=== PATIENT | male | born 1975 | race Caucasian/White ===

== ENCOUNTER 2021-06-26 23:52 | Observation (INO) | payer OTHER ==
--- NOTE | 2021-06-26 23:56 | ERPHSYRPT ---
- History of Present Illness Time Seen by Provider: 06/26/21 23:56 Source: patient, EMS Exam Limitations: clinical condition Physician History: This is a 46-year-old white male who was brought into the emergency department via EMS because of altered mental status. On arrival to emergency department patient seems awake alert and oriented. He is complaining of generalized muscle aches pains and stiffness. He has no specific shortness of breath now but did so earlier in the day. He also has no chest pain. He has no abdominal pain. Patient admits to drinking maybe 1 or 2 drinks during the week and then several drinks on the weekends. Today, in a 24-hour. Patient states he drank 6 seltzers but no more than that. Patient does have trouble sleeping at night. He does take trazodone and Lexapro medication. Patient's found him crying in his room at home and was not answering questions normally and was concerned about his mental status being altered. Patient denies illicit drug use. Patient denies hitting his head. There was no witnessed seizure. Patient did not lose bowel or urine control. Patient is not suicidal. Patient is not homicidal. Timing/Duration: today Severity: mild Character of Deficits: none Deficits: no difficulties Baseline/Normal Cognition: alert oriented x 3 Current Cognition: alert oriented x 3 Baseline Gait: walks w/o assistance Associated Symptoms: confusion (At home and very briefly in the emergency department upon arrival. Quickly that changed to awake alert and oriented x4) Allergies/Adverse Reactions: shrimp Allergy (Verified 06/26/21 23:54) Home Medications: ALPRAZolam 1 MG [Xanax 1 mg] 1 mg PO HS 06/09/16 [History] Escitalopram Oxalate 10 mg [Lexapro 10 MG] 10 mg PO DAILY 06/26/21 [History] Travel Risk - International Travel Have you traveled outside of the country in past 3 weeks: No - Coronavirus Screening Are you exhibiting any of the following symptoms?: No Close contact with a COVID-19 positive Pt in past 14-21 Days: No - Review of Systems Constitutional: No Symptoms Eyes: No Symptoms Ears, Nose, & Throat: No Symptoms Respiratory: No Symptoms Cardiac: No Symptoms Abdominal/Gastrointestinal: No Symptoms Genitourinary Symptoms: No Symptoms Musculoskeletal: No Symptoms Skin: No Symptoms Neurological: No Symptoms Psychological: Anxiety, No Suicidal Ideations, No Homicidal Ideations Endocrine: No Symptoms Hematologic/Lymphatic: No Symptoms Immunological/Allergic: No Symptoms All Other Systems: Reviewed and Negative - Past Medical History Pertinent Past Medical History: No Neurological History: No Pertinent History ENT History: No Pertinent History Cardiac History: No Pertinent History Respiratory History: No Pertinent History Endocrine Medical History: No Pertinent History Musculoskeletal History: No Pertinent History GI Medical History: No Pertinent History History: No Pertinent History Psycho-Social History: Other Male Reproductive Disorders: No Pertinent History Other Medical History: has trouble sleeping uses xanax for sleep aid - Past Surgical History Past Surgical History: Yes Neuro Surgical History: No Pertinent History Cardiac: No Pertinent History Respiratory: No Pertinent History Gastrointestinal: Other Genitourinary: No Pertinent History Musculoskeletal: No Pertinent History Male Surgical History: No Pertinent History Other Surgical History: Lasix eye surgery, EGD, Colonoscopy - Social History Smoking Status: Never smoker Exposure to second hand smoke: No Drug Use: none - Nursing Vital Signs Nursing Vital Signs: Initial Vital Signs Temperature 97.7 F 06/26/21 23:57 Pulse Rate 97 H 06/26/21 23:57 Respiratory Rate 14 06/26/21 23:57 Blood Pressure 165/92 06/26/21 23:57 O2 Sat by Pulse Oximetry 100 06/26/21 23:57 Pain Scale Pain Intensity 0 - Castile Coma Scale Best Eye Response (Mari): (4) open spontaneously Best Verbal Response (Castile): (5) oriented Best Motor Response (Castile): (6) obeys commands Mari Total: 15 - Physical Exam General Appearance: no apparent distress, alert, anxiety Eye Exam: bilateral eye: normal inspection, PERRL, EOMI Ears, Nose, Throat Exam: normal ENT inspection, moist mucous membranes, tonsillar exudate Neck Exam: normal inspection, non-tender, supple Respiratory: normal breath sounds, lungs clear, airway intact, No chest tenderness, No respiratory distress Cardiovascular: regular rate/rhythm, normal heart sounds, normal peripheral pulses Gastrointestinal: soft, normal bowel sounds, No tenderness Rectal Exam: not done Back Exam: normal inspection, normal range of motion, No CVA tenderness, No vertebral tenderness Extremity Exam: normal inspection, normal range of motion, pelvis stable Mental Status: alert, oriented x 3, 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 Exam: normal hearing, normal speech, PERRL, tongue midline Coordination/Gait: normal finger to nose Motor/Sensory: no motor deficit, no sensory deficit, no pronator drift Skin Exam: normal color, warm, dry SpO2 Interpretation: normal O2 Delivery: Room Air - Course Nursing assessment & vital signs reviewed: Yes EKG Interpreted by Me: RATE (93), Sinus Rhythm, NORMAL AXIS, NORMAL INTERVALS, NORMAL QRS, NORMAL ST-T, Other (No acute ischemic changes on today's EKG.) Ordered Tests: Active Orders 24 hr Category Date Time Status Aerospace Physiological Technician STAT Care 06/26/21 23:57 Active Clean Catch Urine Specimen STAT Care 06/26/21 23:57 Active EKG-ER Only STAT Care 06/26/21 23:57 Active IV Insertion STAT Care 06/26/21 23:57 Active Pulse Oximetry (ED) STAT Care 06/26/21 23:57 Active CHEST WITH CONTRAST [CT] Stat Exams 06/27/21 01:30 Taken HEAD WITHOUT CONTRAST [CT] Routine Exams 06/27/21 Taken D-DIMER QUANTITATIVE Stat Lab 06/27/21 01:08 Completed Lactic Acid Stat Lab 06/26/21 23:57 Completed Lactic Acid Stat Lab 06/27/21 03:10 Received TROPONIN Q3H Lab 06/27/21 01:08 Completed TROPONIN Q3H Lab 06/27/21 04:24 Received TROPONIN Q3H Lab 06/27/21 07:00 Ordered TROPONIN Q3H Lab 06/27/21 10:00 Ordered TROPONIN Q3H Lab 06/27/21 13:00 Ordered Medication Summary Discontinued Medications Generic Name Dose Route Start Last Admin Trade Name Freq PRN Reason Stop Dose Admin Methylprednisolone Sodium 0 mg 06/27/21 02:07 06/27/21 02:11 Succinate 125 mg/ Sterile IV 06/27/21 02:08 125 mg Water 2 ml STAT ONE Administration Diphenhydramine HCl 50 mg 06/27/21 02:07 06/27/21 02:12 Diphenhydramine Hcl 50 Mg/Ml Vial IV 06/27/21 02:08 50 mg STAT ONE Administration Diphenhydramine HCl Confirm 06/27/21 02:10 Diphenhydramine Hcl 50 Mg/Ml Vial Administered 06/27/21 02:11 Dose 50 mg .ROUTE .STK-MED ONE Sodium Chloride 1,000 mls @ 999 mls/hr 06/26/21 23:57 06/27/21 02:55 Sodium Chloride 0.9% 1000 Ml IV 06/27/21 00:57 Infused .Q1H1M STA Infusion Sodium Chloride Confirm 06/27/21 01:11 Sodium Chloride 0.9% 1000 Ml Administered 06/27/21 01:12 Dose 1,000 mls @ ud .ROUTE .STK-MED ONE Lorazepam 1 mg 06/27/21 00:11 06/27/21 01:15 Lorazepam 2 Mg/1 Ml 2 Mg Vial IV 06/27/21 00:12 1 mg STAT ONE Administration Lorazepam Confirm 06/27/21 00:11 Lorazepam 2 Mg/1 Ml 2 Mg Vial Administered 06/27/21 00:12 Dose 2 mg .ROUTE .STK-MED ONE Methylprednisolone Sodium Succinate Confirm 06/27/21 02:10 Methylprednis Sod Succ 125 Mg/2 Ml Vial Administered 06/27/21 02:11 Dose 125 mg .ROUTE .STK-MED ONE Ondansetron HCl 4 mg 06/26/21 23:57 06/27/21 01:13 Ondansetron Hcl 4 Mg/2 Ml Vial IV 06/26/21 23:58 4 mg STAT ONE Administration Ondansetron HCl Confirm 06/27/21 01:11 Ondansetron Hcl 4 Mg/2 Ml Vial Administered 06/27/21 01:12 Dose 4 mg .ROUTE .STK-MED ONE Sterile Water Confirm 06/27/21 02:11 Water For Injection,Sterile 10 Ml Vial Administered 06/27/21 02:12 Dose 10 ml IJ .STK-MED ONE Lab/Rad Data: Laboratory Result Diagrams 06/26/21 00:47 06/26/21 00:47 Laboratory Results 06/27/21 06/27/21 06/27/21 Range/Units 01:08 01:08 00:47 WBC (4.0-10.5) K/mm3 RBC (4.1-5.6) M/mm3 Hgb (12.5-18.0) gm/dl Hct (42-50) % MCV (78-100) fl MCH (26-32) pg MCHC (32-36) g/dl RDW (11.5-14.0) % Plt Count (150-450) K/mm3 MPV (7.5-11.0) fl Gran % (36.0-66.0) % Eos # (Auto) (0-0.5) Absolute Lymphs (auto) (1.0-4.6) Absolute Monos (auto) (0.0-1.3) Lymphocytes % (24.0-44.0) % Monocytes % (0.0-12.0) % Eosinophils % (0.00-5.0) % Basophils % (0.0-0.4) % Absolute Granulocytes (1.4-6.9) Basophils # (0-0.4) D-Dimer 904 H* (215-500) ng/mL Sodium (137-145) mmol/L Potassium (3.5-5.1) mmol/L Chloride (98-107) mmol/L Carbon Dioxide (22-30) mmol/L Anion Gap (5-15) MEQ/L BUN (9-20) mg/dL Creatinine (0.66-1.25) mg/dL Estimated GFR ML/MIN Glucose (74-106) mg/dL Lactic Acid (0.4-2.0) Calcium (8.4-10.2) mg/dL Total Bilirubin (0.2-1.3) mg/dL AST (17-59) U/L ALT (0-50) U/L Alkaline Phosphatase (38-126) U/L Ammonia < 9 L (9-30) umol/L Troponin I < 0.012 (0.000-0.034) ng/mL Serum Total Protein (6.3-8.2) g/dL Albumin (3.5-5.0) g/dL Urine Color (YELLOW) Urine Appearance (CLEAR) Urine pH (5-6) Ur Specific [place] (1.005-1.025) Urine Protein (Negative) Urine Ketones (NEGATIVE) Urine Blood (0-5) Terrence/ul Urine Nitrite (NEGATIVE) Urine Bilirubin (NEGATIVE) Urine Urobilinogen (0-1) mg/dL Ur Leukocyte Esterase (NEGATIVE) Urine WBC (Auto) (0-5) /HPF Urine RBC (Auto) (0-2) /HPF U Epithel Cells (Auto) (FEW) /HPF Urine Bacteria (Auto) (NEGATIVE) /HPF Urine Culture Reflexed (NO) Urine Glucose (NEGATIVE) mg/dL Salicylates (2-20) mg/dL Urine Opiates Level (NEGATIVE) Ur Methadone (NEGATIVE) Acetaminophen (10-30) ug/ml Urine Barbiturates (NEGATIVE) Ur Phencyclidine (PCP) (NEGATIVE) Urine Amphetamine (NEGATIVE) U Benzodiazepine Level (NEGATIVE) Urine Cocaine (NEGATIVE) Urine Marijuana (THC) (NEGATIVE) Ethyl Alcohol (0-10) mg/dL 06/27/21 06/26/21 06/26/21 Range/Units 00:45 00:48 00:48 WBC (4.0-10.5) K/mm3 RBC (4.1-5.6) M/mm3 Hgb (12.5-18.0) gm/dl Hct (42-50) % MCV (78-100) fl MCH (26-32) pg MCHC (32-36) g/dl RDW (11.5-14.0) % Plt Count (150-450) K/mm3 MPV (7.5-11.0) fl Gran % (36.0-66.0) % Eos # (Auto) (0-0.5) Absolute Lymphs (auto) (1.0-4.6) Absolute Monos (auto) (0.0-1.3) Lymphocytes % (24.0-44.0) % Monocytes % (0.0-12.0) % Eosinophils % (0.00-5.0) % Basophils % (0.0-0.4) % Absolute Granulocytes (1.4-6.9) Basophils # (0-0.4) D-Dimer (215-500) ng/mL Sodium (137-145) mmol/L Potassium (3.5-5.1) mmol/L Chloride (98-107) mmol/L Carbon Dioxide (22-30) mmol/L Anion Gap (5-15) MEQ/L BUN (9-20) mg/dL Creatinine (0.66-1.25) mg/dL Estimated GFR ML/MIN Glucose (74-106) mg/dL Lactic Acid 2.3 H (0.4-2.0) Calcium (8.4-10.2) mg/dL Total Bilirubin (0.2-1.3) mg/dL AST (17-59) U/L ALT (0-50) U/L Alkaline Phosphatase (38-126) U/L Ammonia (9-30) umol/L Troponin I (0.000-0.034) ng/mL Serum Total Protein (6.3-8.2) g/dL Albumin (3.5-5.0) g/dL Urine Color STRAW (YELLOW) Urine Appearance CLEAR (CLEAR) Urine pH 6.0 (5-6) Ur Specific [place] 1.009 (1.005-1.025) Urine Protein NEGATIVE (Negative) Urine Ketones NEGATIVE (NEGATIVE) Urine Blood NEGATIVE (0-5) Terrence/ul Urine Nitrite NEGATIVE (NEGATIVE) Urine Bilirubin NEGATIVE (NEGATIVE) Urine Urobilinogen NEGATIVE (0-1) mg/dL Ur Leukocyte Esterase NEGATIVE (NEGATIVE) Urine WBC (Auto) NONE SEEN (0-5) /HPF Urine RBC (Auto) NONE (0-2) /HPF U Epithel Cells (Auto) NONE (FEW) /HPF Urine Bacteria (Auto) NONE SEEN (NEGATIVE) /HPF Urine Culture Reflexed NO (NO) Urine Glucose 50 (NEGATIVE) mg/dL Salicylates (2-20) mg/dL Urine Opiates Level NEGATIVE (NEGATIVE) Ur Methadone NEGATIVE (NEGATIVE) Acetaminophen (10-30) ug/ml Urine Barbiturates NEGATIVE (NEGATIVE) Ur Phencyclidine (PCP) NEGATIVE (NEGATIVE) Urine Amphetamine NEGATIVE (NEGATIVE) U Benzodiazepine Level NEGATIVE (NEGATIVE) Urine Cocaine NEGATIVE (NEGATIVE) Urine Marijuana (THC) NEGATIVE (NEGATIVE) Ethyl Alcohol (0-10) mg/dL 06/26/21 06/26/21 Range/Units 00:47 00:47 WBC 5.8 (4.0-10.5) K/mm3 RBC 4.29 (4.1-5.6) M/mm3 Hgb 14.0 (12.5-18.0) gm/dl Hct 40.3 L (42-50) % MCV 93.9 (78-100) fl MCH 32.6 H (26-32) pg MCHC 34.7 (32-36) g/dl RDW 13.5 (11.5-14.0) % Plt Count 150 (150-450) K/mm3 MPV 10.1 (7.5-11.0) fl Gran % 49.7 (36.0-66.0) % Eos # (Auto) 0.34 (0-0.5) Absolute Lymphs (auto) 2.21 (1.0-4.6) Absolute Monos (auto) 0.32 (0.0-1.3) Lymphocytes % 38.0 (24.0-44.0) % Monocytes % 5.5 (0.0-12.0) % Eosinophils % 5.9 H (0.00-5.0) % Basophils % 0.9 (0.0-0.4) % Absolute Granulocytes 2.89 (1.4-6.9) Basophils # 0.05 (0-0.4) D-Dimer (215-500) ng/mL Sodium 144 (137-145) mmol/L Potassium 3.8 (3.5-5.1) mmol/L Chloride 110 H (98-107) mmol/L Carbon Dioxide 25 (22-30) mmol/L Anion Gap 13.0 (5-15) MEQ/L BUN 13 (9-20) mg/dL Creatinine 1.34 H (0.66-1.25) mg/dL Estimated GFR > 60.0 ML/MIN Glucose 136 H (74-106) mg/dL Lactic Acid (0.4-2.0) Calcium 8.4 (8.4-10.2) mg/dL Total Bilirubin 0.50 (0.2-1.3) mg/dL AST 26 (17-59) U/L ALT 28 (0-50) U/L Alkaline Phosphatase 94 (38-126) U/L Ammonia (9-30) umol/L Troponin I (0.000-0.034) ng/mL Serum Total Protein 7.9 (6.3-8.2) g/dL Albumin 4.6 (3.5-5.0) g/dL Urine Color (YELLOW) Urine Appearance (CLEAR) Urine pH (5-6) Ur Specific [place] (1.005-1.025) Urine Protein (Negative) Urine Ketones (NEGATIVE) Urine Blood (0-5) Terrence/ul Urine Nitrite (NEGATIVE) Urine Bilirubin (NEGATIVE) Urine Urobilinogen (0-1) mg/dL Ur Leukocyte Esterase (NEGATIVE) Urine WBC (Auto) (0-5) /HPF Urine RBC (Auto) (0-2) /HPF U Epithel Cells (Auto) (FEW) /HPF Urine Bacteria (Auto) (NEGATIVE) /HPF Urine Culture Reflexed (NO) Urine Glucose (NEGATIVE) mg/dL Salicylates < 1.0 L (2-20) mg/dL Urine Opiates Level (NEGATIVE) Ur Methadone (NEGATIVE) Acetaminophen < 10 L (10-30) ug/ml Urine Barbiturates (NEGATIVE) Ur Phencyclidine (PCP) (NEGATIVE) Urine Amphetamine (NEGATIVE) U Benzodiazepine Level (NEGATIVE) Urine Cocaine (NEGATIVE) Urine Marijuana (THC) (NEGATIVE) Ethyl Alcohol 154 H (0-10) mg/dL - Progress Progress: improved, re-examined Progress Note: 06/27/21 04:28 CAT scan of the head without contrast shows no acute intracranial abnormality. CAT scan of the chest with contrast shows no definite pulmonary embolus or other acute intrathoracic abnormality. Counseled pt/family regarding: lab results, diagnosis, need for follow-up, rad results - Departure Departure Disposition: Home Clinical Impression: Altered mental status, Alcohol intoxication Condition: Stable Critical Care Time: No Referrals: PRISCILLA GRIDER [Primary Care Provider] - Follow up/PCP as directed Additional Instructions: Avoid alcohol use. Follow-up with your primary care physician for further evaluation and management. Take any of your medication as prescribed.
[2021-06-26] MEDS ORDERED: Zofran 4 MG/2 ML VIAL IV ONE (23:57)
[2021-06-26] MEDS ORDERED: Sodium Chloride 0.9% 1000 ML 1,000 ML IV STA (23:57)
[2021-06-27] MEDS ORDERED: Ativan 2 MG/1 ML VIAL IV ONE (00:11)
[2021-06-27] MEDS ORDERED: Ativan 2 MG/1 ML VIAL ONE (00:11)
[2021-06-27 00:50] LABS: Absolute Neutrophil Ct (ANC) 2.89 (1.4-6.9); Basophil (Absolute #) 0.05 (0-0.4); Eosinophil % 5.9 % (0.00-5.0); Eosinophil (Absolute #) 0.34 (0-0.5); Hematocrit 40.3 % (42-50); Lymphocyte (Absolute #) 2.21 (1.0-4.6); Mean Cell Volume 93.9 fl (78-100); Mean Corpuscular Hemoglobin 32.6 pg (26-32); Mean Corpuscular Hgb Concent. 34.7 g/dl (32-36); Mean Platelet Volume 10.1 fl (7.5-11.0); Monocyte (Absolute #) 0.32 (0.0-1.3); Monocytes % 5.5 % (0.0-12.0); Neutrophil % 49.7 % (36.0-66.0); Platelet Count 150 K/mm3 (150-450); Red Blood Count 4.29 M/mm3 (4.1-5.6); Red Cell Distribution Width 13.5 % (11.5-14.0); White Blood Count 5.8 K/mm3 (4.0-10.5)
[2021-06-27 01:03] LABS: ACETAMINOPHEN < 10 ug/ml (10-30); ALBUMIN 4.6 g/dL (3.5-5.0); ALKALINE PHOSPHATASE 94 U/L (38-126); BLOOD UREA NITROGEN 13 mg/dL (9-20); CHLORIDE 110 mmol/L (98-107); Calcium 8.4 mg/dL (8.4-10.2); Carbon Dioxide 25 mmol/L (22-30); Creatinine 1 1.34 mg/dL (0.66-1.25); EST GLOMERULAR FILTRATION RATE > 60.0 ML/MIN; ETHYL ALCOHOL 154 mg/dL (0-10); Glucose 136 mg/dL (74-106); Potassium 3.8 mmol/L (3.5-5.1); SALICYLATE < 1.0 mg/dL (2-20); SGOT/AST 26 U/L (17-59); SGPT/ALT 28 U/L (0-50); SODIUM 144 mmol/L (137-145); Total Protein 7.9 g/dL (6.3-8.2)
[2021-06-27] MEDS ORDERED: Zofran 4 MG/2 ML VIAL ONE (01:11)
[2021-06-27] MEDS ORDERED: Sodium Chloride 0.9% 1000 ML 1,000 ML ONE (01:11)
[2021-06-27 01:15] LABS: Appearance CLEAR (CLEAR); Bilirubin NEGATIVE (NEGATIVE); Blood NEGATIVE Ery/ul (0-5); Glucose 50 mg/dL (NEGATIVE); Ketones NEGATIVE (NEGATIVE); Leukocyte Esterase NEGATIVE (NEGATIVE); Nitrite NEGATIVE (NEGATIVE); Protein,Urine Dip NEGATIVE (Negative); Specific Gravity 1.009 (1.005-1.025); Urobilinogen NEGATIVE mg/dL (0-1)
[2021-06-27 01:19] LABS: Amphetamine,Urine NEGATIVE (NEGATIVE); Barbiturate,Urine NEGATIVE (NEGATIVE); Benzodiazepine,Urine NEGATIVE (NEGATIVE); Cocaine,Urine NEGATIVE (NEGATIVE); Methadone,Urine NEGATIVE (NEGATIVE); Opiate,Urine NEGATIVE (NEGATIVE); PCP,Urine NEGATIVE (NEGATIVE); THC,Urine NEGATIVE (NEGATIVE)
[2021-06-27 01:27] LABS: WBC NONE SEEN /HPF (0-5)
[2021-06-27 01:28] LABS: Bacteria NONE SEEN /HPF (NEGATIVE)
[2021-06-27] MEDS ORDERED: solu-MEDROL 125 MG, Sterile H2O 10 ml 2 ML IV ONE ×2 (02:07)
[2021-06-27] MEDS ORDERED: BENADRYL 50 MG/ML IV ONE (02:07)
[2021-06-27] MEDS ORDERED: solu-MEDROL ONE (02:10)
[2021-06-27] MEDS ORDERED: BENADRYL 50 MG/ML ONE (02:10)
[2021-06-27] MEDS ORDERED: Sterile H2O 10 ml IJ ONE (02:11)
[2021-06-27] MEDS ORDERED: ENOXAPARIN SODIUM SQ STA (05:54)
[2021-06-27] MEDS ORDERED: ENOXAPARIN SODIUM SQ ONE (06:03)
[2021-06-27 07:53] LABS: INFLUENZA A NEGATIVE (NEGATIVE); INFLUENZA B NEGATIVE (NEGATIVE); RESPIRATORY SYNCTIAL VIRUS NEGATIVE (Negative); SARS-CoV-2 Xpert Express NEGATIVE (NEGATIVE)
[2021-06-27] MEDS ORDERED: NITRO-BID 2% UD PACKETS TOP ONE (08:01)
[2021-06-27] MEDS ORDERED: NITRO-BID 2% UD PACKETS ONE (08:02)
[2021-06-27] MEDS ORDERED: MAALOX ES 30 ML UNIT DOSE PO PRN (08:28)
[2021-06-27] MEDS ORDERED: MILK OF MAGNESIA 30 ML PO PRN (08:28)
[2021-06-27] MEDS ORDERED: Senokot-S Tablet PO PRN (08:28)
[2021-06-27] MEDS ORDERED: Ntg 0.2MG/Ml in D5W GLASS*** 250 ML IV PRN (08:28)
[2021-06-27] MEDS ORDERED: TYLENOL 325 MG PO PRN (08:28)
--- NOTE | 2021-06-27 09:06 | XRAY ---
Indication: Seizure. Multiple contiguous axial images obtained through the head without contrast. Comparison: None Normal appearing brain parenchyma, ventricles, and bony calvarium. Paranasal sinuses demonstrate moderate/significant mucosal thickening bilaterally. Mastoid air cells are clear. Impression: Pansinusitis. Remaining CT head without contrast exam is negative. Comment: Preliminary interpretation made by [facility]. No critical discrepancy.
--- NOTE | 2021-06-27 09:09 | XRAY ---
Indication: Short of breath. Seizure. Elevated d-dimer. Multiple contiguous images obtained through the chest using 100 cc Isovue 370 contrast and PE protocol. Comparison: None There is good opacification of the pulmonary arteries. However mild diffuse respiration artifact limits evaluation of the more distal lobar and segmental branches. No obvious pulmonary embolus. Heart borderline enlarged. Aorta is normal in course and caliber. No pathologic mediastinal/hilar lymphadenopathy. Lungs demonstrate moderate bilateral dependent atelectasis. No suspicious pulmonary mass, infiltrate, or effusion. Bony thorax intact with minimal degenerative changes throughout the spine. Limited upper abdomen is unremarkable. Impression: 1. Respiration artifact limits evaluation for pulmonary embolus. No obvious pulmonary embolus. 2. Borderline cardiomegaly. No acute cardiopulmonary abnormalities. Comment: Preliminary interpretation made by C. No critical discrepancy.
[2021-06-27] MEDS ORDERED: DESYREL 50 MG PO SCH (22:00)
[2021-06-28 06:27] LABS: Risk Ratio 5.1
[2021-06-28 09:32] VITALS: BP 169/95; PULSE 61; O2SAT 95
--- NOTE | 2021-06-28 10:54 | SSS ---
DISCHARGE DIAGNOSES: 1) SYNCOPAL EVENT. 2) HYPERLIPIDEMIA. 3) ALCOHOL INTOXICATION. CHIEF COMPLAINT: Syncopal episode. HISTORY OF PRESENT ILLNESS: The patient is a 46-year-old white male patient who apparently was at home when he suffered what appeared to be a syncopal event with possible seizure activity. The patient was brought to the emergency room for evaluation. At the time he complained of no chest discomfort, no abdominal pain. The patient reports he drinks one or two drinks during the week but had drank more heavily during a game where he had friends over. He had approximately six seltzers. The patient does have trazodone and Lexapro at home for use. The patient's reports she found him crying in his room at home and not answering questions normally. She was concerned about mental status changes. PAST MEDICAL/SURGICAL HISTORY: HOME MEDICATIONS: Alprazolam 1 mg q.h.s. PRN, Lexapro 10 mg daily. ALLERGIES: SHRIMP. PHYSICAL EXAMINATION: His vital signs in the emergency room showed temperature 97.7F, pulse 97, respiratory rate 14 and blood pressure 165/92. O2 saturation 100%. HEENT: Normocephalic, atraumatic. Pupils equal round reactive to light. Extraocular movements intact. Oropharynx is pink and moist. NECK: Supple without lymphadenopathy, thyromegaly or JVD. CHEST: Clear to auscultation. HEART: Regular rate and rhythm without murmurs, rubs or gallops. ABDOMEN: Soft. No palpable masses. EXTREMITIES: Without cyanosis, clubbing or edema. NEUROLOGIC: The patient is alert and oriented x3. No focal deficits were currently noted. LAB DATA AND TESTS: Laboratory studies on admission revealed a normal CBC. Metabolic panel showed sugar 136, BUN 13, creatinine 1.34. Electrolytes were essentially normal as were liver enzymes. Acetaminophen and salicylate levels were normal. However, ETOH level was 154. Ammonia level less than 9. Lactic acid 2.3 initially. Urine drug screen was negative. D-dimer was elevated at 904. UA was essentially normal. Troponin was initially less than 0.012 and tiny to a high of 0.038 slightly above normal for our lab at up to 0.034 and eventually returned less than 0.012. His respiratory syncytial virus, influenza and COVID tests were negative. HOSPITAL COURSE: The patient was admitted to the medicine diez and observed on telemetry. He had no significant arrhythmia noted during his stay. His neural status was essentially normal again throughout his stay. The patient did also have CT scan of the head which was essentially normal other than pansinusitis. CT-A of the chest revealed D-dimer was essentially negative as well. The patient at this point was felt to be ready for discharge home again to continue his usual home medications and to follow up in the office. He has been slightly hypertensive during his stay ranging 156, 145 and 179on his systolic and diastolic were normal. He did have an elevation in his lipid panel with LDL of 168 and these things will be addressed as an outpatient.
== END 2021-06-28 11:53 | disposition home or self-care (01) ==
LOC: ED 23:52 → MED SURG 06-27 08:18
PROVIDERS: ADMIT Family Medicine; ATTEND Family Medicine
DX: R55 Syncope and collapse (principal); E78.5 Hyperlipidemia, unspecified; F10.129 Alcohol abuse with intoxication, unspecified; R77.8 Other specified abnormalities of plasma proteins; I10 Essential (primary) hypertension; J32.4 Chronic pansinusitis; Z20.828 Contact with and (suspected) exposure to other viral communicable diseases; Z79.899 Other long term (current) drug therapy
CPT/HCPCS: 0241U; 36000; 36415; 70450; 71260; 80053; 80061; 80307; 81001; 82140; 83605; 83721; 84146; 84484; 85025; 85379; 93005; 93041; 94760; 96360; 96372; 96374; 96375; 99285; G0378; J1200; J1650; J2060; J2405; J2930; A9270-GY; G0480

== ENCOUNTER 2021-08-15 06:04 | Day surgery (SDC) | payer OTHER ==
[2021-08-15] MEDS ORDERED: Lactated Ringers 1,000 ML IV SCH (06:30)
[2021-08-15] MEDS ORDERED: Xylocaine-Mpf 2% 5 Ml Vial ONE (08:36)
[2021-08-15] MEDS ORDERED: Versed 2 MG/2 ML Injection ONE (08:36)
[2021-08-15] MEDS ORDERED: DIPRIVAN 200 MG/20 ML IV ONE ×2 (08:36→08:49)
[2021-08-15 09:53] VITALS: O2SAT 100
[2021-08-15 10:00] VITALS: BP 153/94; PULSE 56
--- NOTE | 2021-08-15 11:41 | OP ---
SURGERY DATE/TIME: 08/15/2021 0839 PREOPERATIVE DIAGNOSIS: Rectal bleeding. POSTOPERATIVE DIAGNOSIS: Internal hemorrhoids. PROCEDURE: Colonoscopy. SURGEON: Dr. Mustafa. ANESTHESIA: MAC. Medications given by anesthesia department. HISTORY: The patient is a 46-year-old white male patient reporting some rectal bleeding. He was felt the need to have endoscopic evaluation. He was appraised of the risks of the procedure including the risk of perforation, phlebitis, untoward reaction to medication, bleeding and missed lesions. The patient verbalized his understanding and desired to have the procedure performed. DESCRIPTION OF PROCEDURE: The patient was given the medications by the anesthesia department. He had continuous pulse oximetry, ECG monitoring, intermittent blood pressure monitoring and tidal CO2 monitoring during the examination. He was placed in the left lateral decubitus position. A digital rectal examination was performed and revealed normal anal sphincter tone, no masses and normal prostate. Small hemorrhoids were noted. The flexible Olympus pediatric colonoscope was used to intubate the rectum. A view of the colon was developed sequentially to the cecum including a short distance in the terminal ileum. Upon insertion and withdrawal, including a retroflex view in the rectum was noted a little mild bleeding at the internal hemorrhoidal site otherwise the colon was felt to be normal. The scope was removed from the patient who tolerated the procedure well and was sent back to OP recovery in good condition. The prep was noted to be fair to good.
== END 2021-08-15 10:03 | disposition home or self-care (01) ==
LOC: SDC 06:04
PROVIDERS: ATTEND Family Medicine
DX: K62.5 Hemorrhage of anus and rectum (principal); K64.8 Other hemorrhoids
CPT/HCPCS: J2250; J2704